=== PATIENT | female | born 1965 | race Caucasian/White ===

== ENCOUNTER 2018-12-17 03:23 | Emergency (ER) | payer OTHER, SELFPAY ==
--- NOTE | 2018-12-17 03:25 | W.ED.GENAD ---
Discharge Plan Disposition Patient Disposition: HOME Condition: Good Discharge Details Chief Complaint: Orthopedic Clinical Impression: Muscle cramp, nocturnal, Syncope, vasovagal Primary Care Provider: Amanda Cobos ED Provider: Nathanael Mckinney Home Meds and New Rx's Prescriptions: No Action No Known Home Meds RF: 0 Discharge Instructions Instructions: Leg Cramps (ED) Additional Instructions: Electrolytes are all normal. EKG looks fine. The fainting is likely related to vasovagal event. Follow-up with your primary care next week if continued problems. Return to ED if you develop chest pain, shortness of breath, neurologic changes, recurrent syncope, other concerns or problems. Referrals: Amanda Cobos, PROCESS IMPROVEMENT ENGINEER [Primary Care Provider] - Medical Decision Making Patient presenting because of leg cramping which resulted in what sounds to be a vasovagal event. She now has normal vital signs. She had no chest pain or shortness of breath. She currently has no pain or cramping in her legs. EKG was obtained and is sinus rhythm at a rate of 70. There is no acute changes noted. We will get laboratory studies mostly to evaluate electrolyte levels. CBC and BMP are normal. Potassium, calcium, magnesium are all within normal limits. Patient has had no further episodes here. She remains hemodynamically stable and neurologically intact. Her syncopal event definitely sounds vagal in nature. Do not have a good explanation for her lower extremity muscle cramping. I am not concerned for DVT. Patient is safe for discharge home to follow-up with primary care next week if continued problems. Return to ED if she develops chest pain, shortness of breath, recurrent syncope, neurologic changes, other concerns. ECG Data Attestation: I personally reviewed and interpreted this ECG (s) as follows: Prior ECG tracings: not available for review Interpretation: Normal sinus rhythm at a rate of 70. Normal axis and intervals. Normal EKG. HPI General Mode of arrival: ambulatory. Date/Time Provider Initiated Documentation: 12/17/18 03:24. Limitations to Documentation: no limitations. Information obtained by: patient and RN notes reviewed. HPI Narrative: Patient presents to ED because of leg cramping and fainting. 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 She was unable to get it to release with massage or stretching. She attempted to get up to go to the bathroom which caused the pain to intensify. She became lightheaded and weak and apparently passed out. Her son reports that she seemed very stiff but was not having jerking motions. When she came to she had cramps in her right thigh as well as her left groin. They have subsequently resolved during her trip into the ED. She did not experience any chest pain or shortness of breath. She had no headache or neurologic symptoms. She has no muscle cramping currently. She was concerned however that the cramps would come back when she was at home so she decided to stay and be evaluated. Related Data Home Medications Medication Instructions Recorded Confirmed Unknown [No Known Home Meds] 12/17/18 12/17/18 Allergies Allergy/AdvReac Type Severity Reaction Status Date / Time No Known Allergies Allergy Unverified 12/17/18 03:38 Review of Systems Review of Systems 12/07 Review of Systems completed and is negative except as stated above in HPI (Systems reviewed: Const, Resp, CV, GI, , MSK, Skin, Neuro) [facility] Surgical History Bilateral salpingectomy with oophorectomy section Cholecystectomy Social History Smoking/Tobacco Use Status: Current every day Tobacco Type: cigarettes Alcohol Intake: never Drug use: Never Substance use type: does not use Do you feel safe at home: Yes Do you feel safe in your relationship?: Yes Exam Narrative Exam Narrative: Vitals: Afebrile with normal vitals and pulse ox. Const: WDWN female in NAD. HEENT: NC/AT. Normal facial exam. Eyes: Normal conjunctiva and sclera. Neck: Supple. Trachea midline. Lungs: Normal respiratory effort. Lungs are clear. Cor: RRR without murmur/gallop. Good radial pulses. GI: Soft. NT/ND. No guarding or rebound. Neuro: A+O x 3. CN grossly in tact. Normal strength, sensation, speech, gait and cognition. Ext: No C/C/E. No deformity or tenderness. No calf tenderness. Skin: Warm and dry without rash.
[2018-12-17 03:28] VITALS: BP 123/87; PULSE 81; RESP 17; TEMP 36.8; O2SAT 98
[2018-12-17 04:17] LABS: HCT 39.8 % (36.0-46.0); HGB 13.4 g/dL (12.0-15.5); Mean Corp. HGB Concentration 33.7 g/dL (32.0-36.0); Mean Corpuscular Hemoglobin 30.9 pg (27.0-33.0); Mean Corpuscular Volume 91.7 fL (80-95); Mean Platelet Volume 9.5 fL (8.0-11.0); Platelet Count 248 x1000/uL (130-400); RBC 4.34 m/cumm (4.00-5.20); RBC Distribution Width 12.5 % (11.7-14.6); White Blood Cell Count 10.11 k/cumm (4.4-10.8)
[2018-12-17 04:28] LABS: Anion Gap 7.3 mmol/L (3-11); BUN 11 mg/dL (7-18); CO2 29.7 mmol/L (21.0-32.0); CREATININE 0.68 mg/dL (0.55-1.02); Calcium 8.9 mg/dL (8.5-10.1); Chloride 103 mmol/L (98-107); Glucose 112 mg/dL (70-100); Potassium 3.7 mmol/L (3.5-5.1); Sodium 140 mmol/L (136-145)
== END 2018-12-17 04:51 | disposition home or self-care (01) ==
PROVIDERS: Emergency Provider Emergency Medicine
DX: R25.2 Cramp and spasm (principal); R55 Syncope and collapse
CPT/HCPCS: 36415; 80048; 85027; 93005; 99284; 83735; 93010

== ENCOUNTER 2020-06-06 16:28 | Outpatient (REF) | payer OTHER, SELFPAY ==
--- NOTE | 2020-06-06 13:30 | PAPFT_PTH ---
PATIENT: Delma Hampton LOC: [facility] U#:[id number] AGE/SX: 55/F ROOM: RE06/06/[address]: Amanda Cobos APRN : 1965 BED: DIS: 06/06/2020 SPEC #: [id number] RECD: 06/07/20 12:53 STATUS: NAVARRO REQ #: [id number] SARAH: 06/06/20 13:[address]: Amanda Cobos DEPT: [facility] Cytology RECD BY: Jenny Curiel Tissues: 1 - CX/ENDOCX FOR PAP SMEARS Procedures: PAP THIN PREP/UVM Screening HPV DNA PROBE Comments: [id number] (HPV 16 / 18/45)
== END 2020-06-06 16:29 | disposition home or self-care (01) ==
LOC: LBN 16:28
DX: Z12.4 Encounter for screening for malignant neoplasm of cervix (principal); Z87.42 Personal history of other diseases of the female genital tract; Z11.51 Encounter for screening for human papillomavirus (HPV); R87.810 Cervical high risk human papillomavirus (HPV) DNA test positive
CPT/HCPCS: 88142; 87624

== ENCOUNTER 2020-06-10 21:52 | Outpatient (CLI) | payer OTHER, SELFPAY ==
--- NOTE | 2020-06-10 07:00 | DI.MAMMO_ITS ---
EXAM: MG MAMMO SCREENING CLINICAL HISTORY: screening,Z12.39. TECHNIQUE: Bilateral full field digital CC and MLO mammographic images were obtained with 3D tomosyn thesis and utilizing computer aided detection (CAD). COMPARISON: Prior mammograms dating back to 2011, the most recent being May 2017. FINDINGS: The right breast on 3D imaging there is a noncalcified 4 x 3 millimeter nodular density located 7 cm in from the nipple, not associated with microcalcifications. Most probably benign as appears unchang ed from 2012. In the left breast there is a noncalcified 6 by 3 millimeter nodular density located 6 cm in from the nipple, slightly lateral of center. More evident than previous. No associated microcalcifications. There is no significant architectural distortion nor skin thickening-retraction. IMPRESSION: 6 x 3 millimeter nodular density in the left breast spot compression view and ultrasound recommended. Stable small nodule in the opposite-right breast which is unchanged from 2012 and therefore benign. BI-RADS Category 0 - Assessment Incomplete: Need additional imaging evaluation Breast Density - Category C - Heterogeneously dense Breast density Category C or D implies that the patient has dense breast tissue. Dense breast tissue can make it harder to find cancer on a mammogram. Dense breast tissue is also associated with an incr eased risk of breast cancer. This information about the result of the mammogram report was provided to the patient to raise their awareness. Use this report when you speak with the patient about their risks for breast cancer, which includes their family history. At that time, you may recommend additional screening tests (Ultrasoun d or MRI) as these tests may add significant information. A negative radiographic report should not delay biopsy if a dominant or clinically suspicious mass is present. Up to ten percent of cancers are not identified on mammography. A negative report may reinforce clinical impression. Adenosis and dense breasts may obscure an underlying neoplasm. False positive reports average 6 to 10%. Patient will receive a letter notifying them of these results.
== END 2020-06-10 21:53 ==
LOC: DI 21:53
DX: Z12.31 Encounter for screening mammogram for malignant neoplasm of breast (principal); N63.10 Unspecified lump in the right breast, unspecified quadrant; R92.8 Other abnormal and inconclusive findings on diagnostic imaging of breast
CPT/HCPCS: 77063; 77067

== ENCOUNTER 2020-06-11 08:49 | Outpatient (CLI) | payer OTHER, SELFPAY ==
--- NOTE | 2020-06-11 | DI.US_ITS ---
EXAM: MG MAMMO SCREEN CALL BACK UNI CLINICAL HISTORY: F/U MAMMO, LT BREAST NODULAR DENSITY TECHNIQUE: Mammograms were interpreted according to the usual protocol including computer analysis w [employer] CAD system, tomosynthesis and C-view imaging. COMPARISON: FINDINGS: Additional mammographic views of the left breast and left breast ultrasound are interpreted in conjun ction. These examinations were obtained to evaluate area of nodularity seen in the central inferior portion of left breast on mammogram of June 10, this appeared to be located slightly lateral to midline on the basis of the tomographic image sets. Additional mammographic views show a questionable area of nodularity, this cannot be identified on CC views but is again seen on MLO views. Comparison with multiple prior mammograms including 2018 in 2 017 shows no significant interval change in appearance comparison with the prior studies. Breast ult rasound shows no evidence of a mass or cyst. IMPRESSION: No specific evidence of malignancy at this time. Follow-up unilateral left breast mammogram recommen ded in 6 months to assess stability of questionable small left breast nodule. BI-RADS Category 3 - 6 month - Probably Benign Finding: Recommend follow-up mammography in 6 months Breast Density - Category C - Heterogeneously dense
== END 2020-06-11 08:50 ==
LOC: DI 06-14 08:49
DX: R92.8 Other abnormal and inconclusive findings on diagnostic imaging of breast (principal)
CPT/HCPCS: 76642; 77063; 77067

== ENCOUNTER 2020-06-13 02:49 | Outpatient (CLI) | payer OTHER, SELFPAY ==
[2020-06-13 07:40] LABS: Hemoglobin A1C 5.6 % (<5.7)
[2020-06-13 08:56] LABS: ALT 24 U/L (14-59); AST 13 U/L (15-37); Albumin 3.9 g/dL (3.4-5.0); Alkaline Phosphatase 111 U/L (46-116); Anion Gap 7.8 mmol/L (3-11); BUN 14 mg/dL (7-18); Bilirubin, Total 0.3 mg/dL (0.2-1.0); CO2 29.2 mmol/L (21.0-32.0); CREATININE 0.8 mg/dL (0.55-1.02); Calcium 9.2 mg/dL (8.5-10.1); Calculated LDL 166 mg/dL (<100); Chloride 105 mmol/L (98-107); Cholesterol 237 mg/dL (<200); Glucose 102 mg/dL (74-106); HDL Cholesterol 48 mg/dL (40-60); Potassium 4.3 mmol/L (3.5-5.1); Sodium 142 mmol/L (136-145); Total Protein 7.3 g/dL (6.4-8.2); Triglyceride 115 mg/dL (<150)
== END 2020-06-13 02:50 | disposition home or self-care (01) ==
LOC: LBO 02:49
DX: Z00.00 Encounter for general adult medical examination without abnormal findings (principal); R73.09 Other abnormal glucose; Z13.220 Encounter for screening for lipoid disorders
CPT/HCPCS: 36415; 80053; 80061; 83036

== ENCOUNTER 2021-02-04 01:17 | Outpatient (CLI) | payer OTHER, SELFPAY ==
--- NOTE | 2021-02-04 07:00 | DI.MAMMO_ITS ---
Exam(s) MAMMO DIAGNOSTIC UNI EXAM: MAMMO DIAGNOSTIC UNI-LEFT CLINICAL HISTORY: f/u abnormal mammogram left breast 06/10/20,6 month f/u,r92.8. TECHNIQUE: Unilateral spot mammographic images were obtained with 3D tomosynthesis technique and uti lizing computer aided detection (CAD). COMPARISON: Prior mammograms dating back to 2011, the most recent being May 2020. Ultrasound F ebruary 2020 was also reviewed. FINDINGS: Fibroglandular tissue pattern in left breast is unchanged. There are no CAD designations in left breast. No new nodules nor malignant-appearing microcalcification groups. Indeed, the previously described p ossible nodule in left breast is less evident on today's study, further evidence that it was a benign finding. Repeat ultrasound is not required today. No malignant-appearing microcalcification groups in the left breast. No new architectural distortion or skin thickening-traction. IMPRESSION: No radiographic evidence of malignancy in the left breast Appropriate follow-up is to keep this patient yearly mammogram schedule, with earlier imaging if a se lf detected breast change is noted. The patient was informed of the findings and follow-up recommendations prior to leaving the [facility]. BI-RADS Category 2 - Benign Findings Breast Density - Category C - Heterogeneously dense Breast density Category C or D implies that the patient has dense breast tissue. Dense breast tissue can make it harder to find cancer on a mammogram. Dense breast tissue is also associated with an incr eased risk of breast cancer. This information about the result of the mammogram report was provided to the patient to raise their awareness. Use this report when you speak with the patient about their risks for breast cancer, which includes their family history. At that time, you may recommend additional screening tests (Ultrasoun d or MRI) as these tests may add significant information. A negative radiographic report should not delay biopsy if a dominant or clinically suspicious mass is present. Up to ten percent of cancers are not identified on mammography. A negative report may reinforce clinical impression. Adenosis and dense breasts may obscure an underlying neoplasm. False positive reports average 6 to 10%. Patient will receive a letter notifying them of these results.
== END 2021-02-04 01:37 ==
DX: R92.8 Other abnormal and inconclusive findings on diagnostic imaging of breast (principal)
CPT/HCPCS: 77061; 77065; G0279

== ENCOUNTER 2021-03-17 09:01 | Outpatient (CLI) | payer OTHER, SELFPAY ==
[2021-03-17 22:30] LABS: COVID-19 RT-PCR UVMMC Result Negative (Negative)
== END 2021-03-17 09:02 | disposition home or self-care (01) ==
LOC: LBO 09:10
PROVIDERS: Visit Provider Family Medicine
DX: Z20.822 Contact with and (suspected) exposure to COVID-19 (principal)
CPT/HCPCS: U0003

== ENCOUNTER 2021-10-23 12:31 | Outpatient (REF) | payer OTHER, SELFPAY ==
--- NOTE | 2021-10-24 11:15 | PAPFT_PTH ---
PATIENT: Delma Hampton LOC: [facility] U#:[id number] AGE/SX: 56/F ROOM: RE10/23/[address]: Amanda Cobos APRN : 1965 BED: DIS: 10/23/2021 SPEC #: [id number] RECD: 10/24/21 12:04 STATUS: NAVARRO BARBOZA #: [id number] SARAH: 10/24/21 11:[address]: Amanda Cobos DEPT: [facility] Cytology RECD BY: Norma Lovelace Tissues: 1 - CX/ENDOCX FOR PAP SMEARS Procedures: PAP THIN PREP/UVM Screening HPV DNA PROBE Comments: [id number] (HPV 16 & 18/45)
== END 2021-10-23 12:32 | disposition home or self-care (01) ==
LOC: LBN 12:31
DX: Z12.4 Encounter for screening for malignant neoplasm of cervix (principal); Z11.51 Encounter for screening for human papillomavirus (HPV); R87.810 Cervical high risk human papillomavirus (HPV) DNA test positive
CPT/HCPCS: 88142; 87624

== ENCOUNTER 2021-10-30 04:06 | Outpatient (CLI) | payer OTHER, SELFPAY ==
[2021-10-30 10:32] LABS: ALT 18 U/L (14-59); AST 11 U/L (15-37); Albumin 3.9 g/dL (3.4-5.0); Alkaline Phosphatase 108 U/L (46-116); Anion Gap 9.3 mmol/L (3-11); BUN 16 mg/dL (7-18); Bilirubin, Total 0.3 mg/dL (0.2-1.0); CO2 25.7 mmol/L (21.0-32.0); CREATININE 0.8 mg/dL (0.55-1.02); Calcium 9.2 mg/dL (8.5-10.1); Chloride 103 mmol/L (98-107); Glucose 101 mg/dL (74-106); Sodium 138 mmol/L (136-145); Total Protein 7.5 g/dL (6.4-8.2)
[2021-10-30 10:49] LABS: Calculated LDL 146 mg/dL (<100); Cholesterol 214 mg/dL (<200); HDL Cholesterol 50 mg/dL (40-60); Triglyceride 93 mg/dL (<150)
== END 2021-10-30 04:07 | disposition home or self-care (01) ==
LOC: LBO 04:06
DX: Z00.00 Encounter for general adult medical examination without abnormal findings (principal); E78.5 Hyperlipidemia, unspecified
CPT/HCPCS: 36415; 80053; 80061

== ENCOUNTER → 2021-11-24 01:28 | Outpatient (CLI) | payer OTHER, SELFPAY ==
--- NOTE | 2021-11-24 07:45 | DI.MAMMO_ITS ---
Exam(s) MAMMO SCREENING EXAM: MAMMO SCREENING CLINICAL HISTORY: screening.Z12.39 TECHNIQUE: Mammograms were interpreted according to the usual protocol including computer analysis w [facility] CAD system, tomosynthesis and C-view imaging. COMPARISON: FINDINGS: The breasts are heterogeneously dense. No dominant mass or clumped microcalcification is identified in either breast. The current examination is compared with previous examinations including of 2020 and there has been no gross interval change in appearance in comparison with the prior studie s. IMPRESSION: No specific evidence of malignancy at this time. Routine screening examinations are suggested at yea rly intervals in this age group according to the ACS ACR guidelines. BI-RADS Category 1 - Negative Breast Density - Category C - Heterogeneously dense
== END ==
DX: Z12.31 Encounter for screening mammogram for malignant neoplasm of breast (principal)
CPT/HCPCS: 77063; 77067

== ENCOUNTER 2022-08-07 13:00 | Outpatient (CLI) | payer OTHER, SELFPAY ==
--- NOTE | 2022-08-07 | DI.RAD_ITS ---
Exam(s) XR FOOT RT COMPLETE EXAM: XR FOOT RT COMPLETE CLINICAL HISTORY: RT FOOT PAIN M79.671 INJURY 3 WEEKS AGO ? FX. TECHNIQUE: 2D digital imaging was performed. Three views. COMPARISON: No exams were available for comparison FINDINGS: BONES: No acute or subacute fracture is present. No bony destructive lesion is seen. JOINTS: No dislocation present. SOFT TISSUE: Normal. IMPRESSION: Unremarkable radiographs of the right foot. DATA REPOSITORY: RADIATION DOSE DELIVERED:
== END 2022-08-07 13:20 ==
LOC: DI 13:01
PROVIDERS: PCP Nurse Practitioner Family; Visit Provider Physician Assistant Medical
DX: M79.671 Pain in right foot (principal)
CPT/HCPCS: 73630

== ENCOUNTER 2022-10-10 11:45 | Outpatient (REF) | payer OTHER, SELFPAY ==
--- NOTE | 2022-10-10 | DI.RAD_ITS ---
Exam(s) XR CHEST 2V PA LATERAL EXAM: XR CHEST 2V PA LATERAL CLINICAL HISTORY: SOB. TECHNIQUE: 2D digital imaging was performed. COMPARISON: No exams were available for comparison FINDINGS: 2 views: Heart size is normal. The mediastinum is not widened. Lungs are clear. No infiltrates nor pleural effusions. IMPRESSION: No acute pulmonary findings. DATA REPOSITORY: RADIATION DOSE DELIVERED:
--- NOTE | 2022-10-10 13:13 | DI.VRAD_ITS ---
PROCEDURE INFORMATION: Exam: XR Chest Exam date and time: 10/10/2022 12:18 PM Age: 57 years old Clinical indication: Shortness of breath TECHNIQUE: Imaging protocol: Radiologic exam of the chest. Views: 2 views. COMPARISON: No relevant prior studies available. FINDINGS: Lungs: Unremarkable. No consolidation. Pleural spaces: Unremarkable. No pleural effusion. No pneumothorax. Heart/Mediastinum: Unremarkable. No cardiomegaly. Bones/joints: Degenerative changes are seen in the spine. There is no acute bony abnormality Surgical clips are seen in the right upper quadrant likely prior cholecystectomy IMPRESSION: No acute findings by plain film exam Dictated and Authenticated by: Hollie Waldrop MD. Ordering:RONNIE REYNOLDS MD
== END 2022-10-10 12:05 ==
LOC: DI 11:45
PROVIDERS: PCP Nurse Practitioner Family; Visit Provider Nurse Practitioner Family
DX: R06.02 Shortness of breath (principal)
CPT/HCPCS: 71046

== ENCOUNTER 2022-10-10 12:22 | Outpatient (REF) | payer OTHER, SELFPAY ==
[2022-10-12 11:03] LABS: Hepatitis C Ab w Rflx HCV PCR Negative (Negative)
[2022-10-12 11:33] LABS: HIV-1/2 Ag & Ab Screen Negative (Negative)
== END 2022-10-10 12:23 | disposition home or self-care (01) ==
LOC: LBN 12:22
PROVIDERS: PCP Nurse Practitioner Family; Visit Provider Nurse Practitioner Family
DX: Z11.3 Encounter for screening for infections with a predominantly sexual mode of transmission (principal); Z11.4 Encounter for screening for human immunodeficiency virus [HIV]; Z11.59 Encounter for screening for other viral diseases
CPT/HCPCS: 86803; 87389

== ENCOUNTER 2022-10-30 11:29 | Outpatient (REF) | payer OTHER, SELFPAY ==
--- NOTE | 2022-10-30 10:30 | PAPFT_PTH ---
PATIENT: Delma Hampton LOC: [facility] U#:[id number] AGE/SX: 57/F ROOM: RE10/30/[address]: Greg Goyal DNP : 1965 BED: DIS: 10/30/2022 SPEC #: [id number] RECD: 10/30/22 13:27 STATUS: NAVARRO RE[place]er[place] #: [id number] SARAH: 10/30/22 10:[address]: Greg Encarnacion DEPT: [facility] Cytology RECD BY: Greta Garcia Tissues: 1 - CX/ENDOCX FOR PAP SMEARS Procedures: PAP THIN PREP/UVM Screening HPV DNA PROBE Comments: [id number] (HPV 16 & 18/45) (CHLAMYDIA/GC)
[2022-11-02 13:24] LABS: Chlamydia Result Negative (Negative); GC Result Negative (Negative)
== END 2022-10-30 11:30 | disposition home or self-care (01) ==
LOC: LBN 11:29
PROVIDERS: PCP Nurse Practitioner Family; Visit Provider Nurse Practitioner Family
DX: Z11.3 Encounter for screening for infections with a predominantly sexual mode of transmission (principal); Z12.4 Encounter for screening for malignant neoplasm of cervix; Z11.51 Encounter for screening for human papillomavirus (HPV); R87.810 Cervical high risk human papillomavirus (HPV) DNA test positive
CPT/HCPCS: 87491; 87591; 88142; 87624

== ENCOUNTER 2022-11-26 11:58 | Day surgery (SDC) | payer OTHER, SELFPAY ==
--- NOTE | 2022-11-25 19:41 | W.PM.DSUDISC ---
Date of service: 11/26/22 Time of Service: 13:25 Discharge Plan Disposition Patient Disposition: Home Condition: Good Discharge Details Reason For Visit: EGD Attending Provider: Rogelio Jurado Primary Care Provider: Greg Encarnacion Home Meds and New Rx's Prescriptions: Continued calcium carbonate [Tums] 200 mg calcium (500 mg) Tablet,Chewable 500 mg PO DIRECTED Discharge Instructions Instructions: Diet for Stomach Ulcers and Gastritis (GEN) Additional Instructions: Delma, we were able to do your upper endoscopy today without any problems at all. You do have a very mild amount of inflammation in your stomach. This is called gastritis. There are a number of different causes of gastritis, but some general rules of thumb to help improve the symptoms would be to avoid nonsteroidal anti-inflammatory medications such as aspirin and ibuprofen. Decreasing, or even better yet, stopping cigarette smoking is also known to be very helpful. I know that you did not tolerate the omeprazole very well, and there were a number of other types of medications that we can try to help relieve some of your symptoms. At this point, however, I would prefer to wait for the results of the biopsies that I did today before making any changes to your medicines. Most importantly, I did not see any signs of any hiatal hernia. In that regard, I think it would be very reasonable to get you on the schedule to repair the hernia on your abdominal wall. I will leave the timing of this up to you. Like we talked about in the office, and after your procedure, recovery from the abdominal wall hernia repair will be about a week to week and a half of soreness, and light duty lifting (nothing more than 10 pounds). I am optimistic that will help relieve some of the pain that you have been experiencing. Please feel free to give my office a call at any time. I will let them know that it will be fine to put you on the operating room schedule whenever works for you. If we need to repeat any paperwork, we can do it on the day of surgery. In the meantime, follow the instructions below, and I am sure you will make a quick recovery from the EGD. 1. If tolerated, consume a soft, low fiber diet for 1-2 days. 2. Do not drive, drink alcohol, operate machinery, make critical decisions, or do activities that require coordination or balance for 24 hours. 3. You may experience a sore throat for 24 to 48 hours. You may use throat lozenges or gargle with warm salt water to relieve the discomfort. 4. Because air was put into your stomach during the procedure, you may experience some belching. 5. Go directly to the emergency room if you notice any of the following: Develop chills (warm to touch), or if you have a thermometer and your temperature is above 101 Difficulty breathing or difficultly swallowing Persistent vomiting Severe abdominal pain, other than gas cramps Severe chest pain Black, tarry stools Any bleeding ? exceeding one tablespoon 6. Call your physician if the site where your intravenous was started becomes red, swollen, painful, and warm to touch. 7. Your physician has reviewed your pre-procedure medications. Please continue to take those medications as previously ordered. You will be given specific information/education regarding any changes to your medications before leaving. Activity:: Activity as Tolerated Diet:: As Tolerated Discharge Orders Discharge Orders: Discharge Order (Routine); Ordered 11/25/22 Ordered By: Rogelio Jurado DS: Diagnosis Discharge Diagnosis (1) Gastritis: Status: Acute Asessment and Plan: I will follow-up on biopsy results
--- NOTE | 2022-11-25 19:43 | W.PM.ENDDOP ---
Date of service: 11/26/22 Time of Service: 13:28 Endoscopy Report DATE OF PROCEDURE: 11/26/22 PRE-OP DIAGNOSIS: Gastritis POST-OP DIAGNOSIS: same PROCEDURE: EGD with biopsies SURGEON: Rogelio Jurado ANESTHESIA TYPE: General:No Airway ESTIMATED BLOOD LOSS: 5 PATHOLOGY: other (Duodenal, gastric antral and body, GE junction biopsy) COMPLICATIONS: None DISPOSITION: same day INDICATIONS: Delma is a 57 year old woman with midepigastric abdominal pain. PROCEDURE START TIME: 13:06 PROCEDURE END TIME: 13:13 FINDINGS: Mild antral gastritis, irregularity at the GE junction PROCEDURE DESCRIPTION: After the initiation of monitored anesthetic care, and with the assistance of a bite block, I advanced a standard gastroscope through the mouth past the hypopharynx and into the esophagus.? Under the direct vision of the scope, I advanced down the esophagus into the stomach.? Once I entered the stomach, I performed a brief inspection, followed by retroflexion towards the gastric cardia.? This appeared normal.? I did not see any signs of hiatal hernia from above or below the GE junction. After that, I gently advanced the scope around the incisura angularis and examined the pylorus.? There was some mild erythema of the antral region. There were no discrete ulcers..? Next, I advanced the scope through the pylorus into the duodenum.? The mucosa was pink and healthy appearing.?I was able to visualize bile draining into the duodenum through the ampulla Vater. I did perform some random biopsies of the duodenum using cold forceps. There was minimal bleeding. Next, I began retracting the endoscope.? I brought the camera back into the stomach and performed biopsies of the gastric antrum as well as the gastric body. This was also done with cold forceps.? I then gently desufflated some of the stomach, and withdrew the endoscope into the distal esophagus. The GE junction measured about 30 cm from the incisors. There was very mild irregularity of the Z-line. I did perform biopsies of the GE junction.. ?Finally, I withdrew the scope along the length of the esophagus taking great care to examine the entirety of the mucosa.? I did not appreciate any abnormalities.
[2022-11-26 12:10] VITALS: BP 127/86; PULSE 90; RESP 18; TEMP 37; O2SAT 96
[2022-11-26] MEDS: Lactated Ringers 1,000 ML 80 ML IV (12:29)
--- NOTE | 2022-11-26 12:58 | ANES.PREOP_ITS ---
General Info Date of Service Date Performed: 11/26/22 Height: 4 ft 11 in Weight: 45.1 kg Body Mass Index (BMI): 20.0 Surgical Procedure: Operation Date: 11/26/22 13:35 Proposed Procedure Side Surgeon p Gastroscopy Rogelio Jurado MD Meds Allergies and Home Medications Allergies Allergy/AdvReac Type Severity Reaction Status Date / Time No Known Allergies Allergy Verified 11/26/22 12:16 Home Medication Medication Instructions Recorded calcium carbonate 200 mg calcium 500 mg PO DIRECTED 11/25/22 (500 mg) chewable tablet (Tums) Current Visit Medications: Current Medications Generic Name Dose Route Start Last Admin Trade Name Freq PRN Reason Stop Dose Admin Hyoscyamine Sulfate 0.125 mg 11/25/22 19:45 Hyoscyamine 0.125 Mg Sl/Oral/Chew SL 12/25/22 19:44 DIRECTED PRN Ringer's Solution 1,000 mls @ 80 mls/hr 11/27/22 06:00 11/26/22 12:29 IV 11/27/22 23:59 80 mls/hr INFUSION ELENA Administration IV Miscellaneous Supplies 1 each 11/27/22 06:00 Iv Access IV 11/27/22 23:59 DIRECTED ELENA Ondansetron HCl 4 mg 11/25/22 19:45 Ondansetron 4 Mg/2 Ml Vial IVP 12/25/22 19:44 Q4H PRN PRN Nausea / Vomiting Sodium Chloride 0 ml 11/27/22 06:00 Normal Saline Flush 10 Ml Syr IV 11/27/22 23:59 PRN PRN Sodium Chloride 0 ml 11/27/22 06:00 Normal Saline 10 Ml Vial IJ 11/27/22 23:59 DIRECTED PRN Sterile Water 0 ml 11/27/22 06:00 Water,Injection,Sterile 10 Ml Vial IJ 11/27/22 23:59 DIRECTED PRN PFSH Active Problems Active Problems: Problem Status Onset Code Gastritis K29.70 Hyperlipidemia LDL goal <100 E78.5 Abnormal mammogram of left breast R92.8 Anxiety and depression F41.9, F32.9 Pain in left hip M25.552 Encounter for screening for other viral diseases Z11.59 History of abnormal cervical Pap smear 03/25/04 Z87.898 Abnormal weight loss R63.4 Carpal tunnel syndrome G56.00 Depressive disorder F32.9 Bitten by dog, subsequent encounter 05/03/17 W54.0XXD H/O section Z98.891 Headache R51 Hx of BSO (bilateral salpingo-oophorectomy) Z90.79, Z90.722 S/P cholecystectomy Z90.49 Smoker F17.200 Synovitis and tenosynovitis 10/18/12 M65.9 Surgical History Surgical History Bilateral salpingectomy with oophorectomy section Cholecystectomy Tobacco Smoking/Tobacco Use Status: Current every day Tobacco Type: cigarettes Second hand exposure: Yes Counseling given: provider counseling Alcohol Alcohol Intake: current Alcohol intake frequency: a few times a week Alcohol type: beer Details: 3-4 drinks, monthly or less Substance Use Substance use: Never Substance use type: does not use Vital Signs and Lab Results Vital Signs Most Recent Vital Signs in EMR: Most Recent Vital Signs Temp Pulse Resp BP Pulse Ox 37.0 C 90 18 127/86 96 11/26/22 12:10 11/26/22 12:10 11/26/22 12:10 11/26/22 12:10 11/26/22 12:10 Lab Results Blood Type / Crossmatch: No Data to Display Complete Blood Count: No Data to Display Complete Metabolic Panel: No Data to Display Liver Function Panel: No Data to Display Coagulation Panel: No Data to Display Cardiac Panel: No Data to Display Arterial Blood Gas: No Data to Display Venous Blood Gas: No Data to Display Pancreas Panel: No Data to Display Thyroid Panel: No Data to Display Infectious Disease: Neisseria gonorrhoeae DNA Probe Negative (Negative) 10/30/22 1 0:30 Blood Cultures: No Data to Display Toxicology Panel: No Data to Display Anesthesia Assessment and Plan Anesthesia History Personal History: No History of Anesthesia Complications Family History: No Family History of Anesthesia Complications Exercise Tolerance Exercise Tolerance: Metabolic Equivalents>4 Pertinent Negatives Pertinent Negatives: No Symptoms of GERD, No Major Cardiovascular Symptoms or Complaints and No History of CVA/TIA Cardiac & Pulmonary Exam Cardiac Exam: Normal S1/S2 Heart Sounds Pulmonary Exam: Clear Bilateral Breath Sounds and Active Dry Cough Implantable Cardiac Device Does patient have a Pacemaker or an ICD?: No Airway Exam Known Difficult Airway: No Mallampati Class: 1 Mouth Opening: Normal (> 3cm) Thyromental Distance: Greater than 3 cm Neck Range of Motion: Full ROM Neck Circumference: Normal Teeth Condition: Normal Dentition ASA Classification ASA Score: ASA 2 Emergency Case?: No NPO Status NPO Status: NPO Clears >2 hours, Solids >8 hours Anesthesia Plan Resuscitation Status: Full Code Anesthesia Technique: Labor Intrathecal Injection Airway Planned: Natural Airway Monitors Used: Standard Monitors
--- NOTE | 2022-11-26 13:08 | BOWEL_PTH ---
PATIENT: Delma Hampton LOC: [facility] U#:[id number] AGE/SX: 57/F ROOM: RE11/26/[address]: Rogelio Jurado MD : 1965 BED: DIS: 11/26/2022 SPEC #: [id number] RECD: 11/26/22 15:29 STATUS: NAVARRO RE #: [id number] SARAH: 11/26/22 13:[address]: Rogelio Jurado DEPT: Surgical Specimen RECD BY: Norma Lovelace ENTERED: 11/26/22 15:31 SP TYPE: Bowel OTHR DR: Greg Goyal DNP Tissues: 1 - BIOPSY BOWEL 2 - STOMACH BIOPSY 3 - STOMACH BIOPSY 4 - ESOPHAGUS BIOPSY Procedures: GROSS AND MICRO LEVEL 4 Comments: [id number]
[2022-11-26 13:18] VITALS: BP 101/56; PULSE 82; RESP 16; TEMP 36.6; O2SAT 96
--- NOTE | 2022-11-26 13:23 | W.ANESPOSTOP ---
Postoperative Evaluation Date, Time and Location Date Performed: 11/26/22 Time Performed: 13:23 Patient Location: Day Surgery Unit Vital Signs Most Recent Imported Vital Signs: Temp Pulse Resp BP Pulse Ox 36.6 C 82 16 101/56 L 96 11/26/22 13:18 11/26/22 13:18 11/26/22 13:18 11/26/22 13:18 11/26/22 13:18 Most Recent Vital Signs Temp Pulse Resp BP Pulse Ox 37.0 C 90 18 127/86 96 11/26/22 12:10 11/26/22 12:10 11/26/22 12:10 11/26/22 12:10 11/26/22 12:10 Pain Score Most Recent Pain Score: Most Recent Pain Score Pain Level 0 11/26/22 12:10 Assessment Mental Status: Awake (Alert & Oriented to Patient Baseline) Airway and Respiratory Function: Patent airway with normal (patient baseline) respiratory exam Cardiovascular Function: Hemodynamically Stable Hydration Status: Adequately Hydrated Nausea & Vomiting: No Nausea or Vomiting Pain: Pt. Denies Any Pain Peripheral Nerve Block: Patient did not receive a nerve block
[2022-11-26 14:04] VITALS: BP 135/62; PULSE 70; RESP 18; TEMP 36.6; O2SAT 98
== END 2022-11-26 14:13 | disposition home or self-care (01) ==
PROVIDERS: PCP Nurse Practitioner Family; Visit Provider Surgery
PROC: 0DJ68ZZ Inspection of Stomach, Via Natural or Artificial Opening Endoscopic (ICD-10-PCS; CPT 43235; principal; 2022-11-26 13:30)
DX: K29.70 Gastritis, unspecified, without bleeding (principal); K22.89 Other specified disease of esophagus
CPT/HCPCS: 43239; 88305; J2001

== ENCOUNTER 2022-12-18 08:00 | Day surgery (SDC) | payer OTHER, SELFPAY ==
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
--- NOTE | 2022-12-17 20:39 | W.PM.DSUDISC ---
Date of service: 12/18/22 Time of Service: 10:42 Discharge Plan Disposition Patient Disposition: Home Condition: Good Discharge Details Reason For Visit: Open incisional hernia repair with mesh Attending Provider: Rogelio Jurado Primary Care Provider: Greg Encarnacion Home Meds and New Rx's Prescriptions: Continued calcium carbonate [Tums] 200 mg calcium (500 mg) Tablet,Chewable 500 mg PO DIRECTED Discharge Instructions Additional Instructions: Delma, we were able to fix your hernia today without any difficulty. The hole itself was about 1 and half centimeters in each dimension. It contained a little bit of fat from your abdominal cavity. Everything was returned to its normal position, and I used a permanent mesh implant below the level of the whole to buttress the closure which was done over top. We used a long-acting anesthetic that will hopefully provide some relief in the days to come. I will also provide a prescription for some tramadol in the case that Tylenol and ibuprofen are inadequate for your discomfort. I look forward to seeing you in the office on December 30 at 8:15 AM. If you have any questions in the meantime, please do not hesitate to call me at any point. 1. Resume all of your medications. 2. Ice packs and heating pads can be used for discomfort after the surgery. 3. Okay to use tylenol and ibuprofen over the counter as needed. Use the tramadol if this does not work 4. Leave bandage in place for 24 hours, then remove. 5. Shower with warm soapy water. Pat dry. Use a bandaid if needed to protect your clothing. 6. No soaking or tub baths until I see you in the office. 7. No heavy lifting until I see you in the office. 8. Call the office (or go directly to the emergency room after hours) if you notice any of the following: Develop chills (warm to touch), or if you have a thermometer and your temperature is above 101 Difficulty breathing or difficultly swallowing Persistent vomiting Any bleeding ? exceeding one tablespoon 9. Call your physician if the site where your intravenous was started becomes red, swollen, painful, and warm to touch. Remove Dressings/Wound Care:: 24 hours Shower/Bathe:: 24 hours Diet:: As Tolerated Discharge Orders Discharge Orders: Discharge Order (Routine); Ordered 12/17/22 Ordered By: Rogelio Jurado DS: Diagnosis Discharge Diagnosis (1) Incisional hernia: Status: Acute Asessment and Plan: Status post incisional hernia repair, follow-up December 30 a 8:15
--- NOTE | 2022-12-17 20:40 | W.PM.OP ---
Date of service: 12/18/22 Time of Service: 10:47 Operative Note Operative Note DATE OF PROCEDURE: 12/18/22 PRE-OP DIAGNOSIS: Incisional hernia POST-OP DIAGNOSIS: same PROCEDURE: Open incisional hernia repair with mesh SURGEON: Rogelio Jurado LOSS PREVENTION LEADER: Danni Olmos ANESTHESIA TYPE: Local By Surgeon and MAC Refer to Anesthesia Record ESTIMATED BLOOD LOSS: 20 PATHOLOGY: none sent COMPLICATIONS: None Patient was transported to: same day Patient's condition: stable Implants: Ventral Roldan ST hernia patch Indications: Delma is a 57-year-old woman with a painful incisional hernia from a mid epigastric port site after laparoscopic cholecystectomy. Findings: 1.5 x 1.5 centimeter midepigastric incisional port site fat-containing hernia Procedure Description: If the induction of anesthesia, the anterior abdominal wall was prepped and draped in usual fashion. I incised in the midline, and dissected down to the fascia. The dissection was carried off slightly towards the right side, where the incisional hernia was encountered. A complete circumferential dissection of the hernia sac, which was opened. It contained peritoneal fat. The contents of the sac were reduced back into the peritoneal space, and the fascial edge was dissected free. Next, I delivered a Ventralex ST hernia mesh into the subfascial position. The straps were split, and the patch was gently elevated to ensure appropriate subfascial positioning. It was pexied in place with Prolene sutures. Next, the fascial defect was closed in a horizontal fashion with interrupted Prolene stitches. The space was irrigated. It was examined for hemostasis. The deep fat layer was closed with interrupted Vicryl stitches, and the skin was closed with a running subcuticular stitch. A generous field block was created prior to the incision, and reinforced at the end of the operation using liposomal bupivacaine. Skin affix was used to seal the skin. Final incision length was 5 cm long.
[2022-12-18 08:16] VITALS: BP 152/83; PULSE 67; RESP 17; TEMP 36.7; O2SAT 96
[2022-12-18] MEDS: Celecoxib 200 MG CAP PO (08:22)
[2022-12-18] MEDS: Acetaminophen 500 MG TAB 1000 MG PO (08:23)
[2022-12-18] MEDS: Gabapentin 300 MG CAP 600 MG PO (08:23)
[2022-12-18] MEDS: Lactated Ringers 1,000 ML 80 ML IV (08:30)
--- NOTE | 2022-12-18 09:14 | W.ANESPRE ---
General Info Date of Service Date Performed: 12/18/22 Height: 4 ft 11 in Weight: 44.7 kg Body Mass Index (BMI): 19.9 Surgical Procedure: Operation Date: 12/18/22 10:10 Proposed Procedure Side Surgeon p Herniorrhaphy Ventral w/Mesh Rogelio Jurado MD Meds Allergies and Home Medications Allergies Allergy/AdvReac Type Severity Reaction Status Date / Time No Known Allergies Allergy Verified 12/18/22 08:21 Home Medication Medication Instructions Recorded calcium carbonate 200 mg calcium 500 mg PO DIRECTED 11/25/22 (500 mg) chewable tablet (Tums) Current Visit Medications: Current Medications Generic Name Dose Route Start Last Admin Trade Name Freq PRN Reason Stop Dose Admin Acetaminophen 1,000 mg 12/18/22 06:00 12/18/22 08:23 Acetaminophen 500 Mg Tab PO 12/18/22 23:59 1,000 mg PREOP ELENA Administration Celecoxib 200 mg 12/18/22 06:00 12/18/22 08:22 Celecoxib 200 Mg Cap PO 12/18/22 23:59 200 mg PREOP ELENA Administration Gabapentin 600 mg 12/18/22 06:00 12/18/22 08:23 Gabapentin 300 Mg Cap PO 12/18/22 23:59 600 mg PREOP ELENA Administration Hydromorphone HCl 0.2 mg 12/17/22 20:41 Hydromorphone 2 Mg/Ml Syr IVP 01/16/23 20:40 Q1H PRN PRN Ringer's Solution 1,000 mls @ 80 mls/hr 12/18/22 06:00 12/18/22 08:30 IV 12/18/22 23:59 80 mls/hr INFUSION ELENA Administration Cefazolin Sodium/Dextrose 2 gm in 50 mls @ 100 mls/hr 12/18/22 06:00 Ancef Duplex IVPB 12/18/22 23:59 PREOP ELENA IV Miscellaneous Supplies 1 each 12/18/22 06:00 Iv Access IV 12/18/22 23:59 DIRECTED ELENA Oxycodone HCl 5 mg 12/17/22 20:41 Oxycodone 5 Mg Tab PO 01/16/23 20:40 Q3H PRN PRN Pain Sodium Chloride 0 ml 12/18/22 06:00 Normal Saline Flush 10 Ml Syr IV 12/18/22 23:59 PRN PRN Sodium Chloride 0 ml 12/18/22 06:00 Normal Saline 10 Ml Vial IJ 12/18/22 23:59 DIRECTED PRN Sterile Water 0 ml 12/18/22 06:00 Water,Injection,Sterile 10 Ml Vial IJ 12/18/22 23:59 DIRECTED PRN PFSH Active Problems Active Problems: Problem Status Onset Code Incisional hernia K43.2 Gastritis K29.70 Hyperlipidemia LDL goal <100 E78.5 Abnormal mammogram of left breast R92.8 Anxiety and depression F41.9, F32.9 Pain in left hip M25.552 Encounter for screening for other viral diseases Z11.59 History of abnormal cervical Pap smear 03/25/04 Z87.898 Abnormal weight loss R63.4 Carpal tunnel syndrome G56.00 Depressive disorder F32.9 Bitten by dog, subsequent encounter 05/03/17 W54.0XXD H/O section Z98.891 Headache R51 Hx of BSO (bilateral salpingo-oophorectomy) Z90.79, Z90.722 S/P cholecystectomy Z90.49 Smoker F17.200 Synovitis and tenosynovitis 10/18/12 M65.9 Surgical History Surgical History Bilateral salpingectomy with oophorectomy section Cholecystectomy History of esophagogastroduodenoscopy (~11/2022) Tobacco Smoking/Tobacco Use Status: Current every day Tobacco Type: cigarettes Second hand exposure: Yes Counseling given: provider counseling Alcohol Alcohol Intake: current Alcohol intake frequency: a few times a week Alcohol type: beer Details: 3-4 drinks, monthly or less Substance Use Substance use: Never Substance use type: does not use Vital Signs and Lab Results Vital Signs Most Recent Vital Signs in EMR: Most Recent Vital Signs Temp Pulse Resp BP Pulse Ox 36.7 C 67 17 152/83 H 96 12/18/22 08:16 12/18/22 08:16 12/18/22 08:16 12/18/22 08:16 12/18/22 08:16 Lab Results Blood Type / Crossmatch: No Data to Display Complete Blood Count: No Data to Display Complete Metabolic Panel: No Data to Display Liver Function Panel: No Data to Display Coagulation Panel: No Data to Display Cardiac Panel: No Data to Display Arterial Blood Gas: No Data to Display Venous Blood Gas: No Data to Display Pancreas Panel: No Data to Display Thyroid Panel: No Data to Display Infectious Disease: No Data to Display Blood Cultures: No Data to Display Toxicology Panel: No Data to Display Anesthesia Assessment and Plan Anesthesia History Personal History: No History of Anesthesia Complications Family History: No Family History of Anesthesia Complications Exercise Tolerance Exercise Tolerance: Metabolic Equivalents>4 Pertinent Negatives Pertinent Negatives: No Major Cardiovascular Symptoms or Complaints, No Major Pulmonary Symptoms or Complaints and No History of CVA/TIA Cardiac & Pulmonary Exam Cardiac Exam: Normal S1/S2 Heart Sounds Pulmonary Exam: Clear Bilateral Breath Sounds Implantable Cardiac Device Does patient have a Pacemaker or an ICD?: No Airway Exam Known Difficult Airway: No Mallampati Class: 1 Mouth Opening: Normal (> 3cm) Thyromental Distance: Greater than 3 cm Neck Range of Motion: Full ROM Neck Circumference: Normal Teeth Condition: Normal Dentition ASA Classification ASA Score: ASA 2 Emergency Case?: No NPO Status NPO Status: NPO Clears >2 hours, Solids >8 hours Anesthesia Plan Resuscitation Status: Full Code Anesthesia Technique: General Anesthesia Airway Planned: Natural Airway Monitors Used: Standard Monitors
[2022-12-18 09:18] VITALS: BMI 19.9
[2022-12-18] MEDS: ceFAZolin 2 GM/50 ML BAG IVPB (09:53)
[2022-12-18] MEDS: Bupivacaine 0.25% Pres-Free 30 ML VIAL (10:09)
[2022-12-18] MEDS: Bupivacaine LIPOSOME/PF 133 MG/10 ML VIAL IJ (10:29)
[2022-12-18 10:45] VITALS: BP 135/95; PULSE 67; RESP 16; TEMP 36.3; O2SAT 99
[2022-12-18 11:14] VITALS: BP 145/95; PULSE 57; RESP 17; TEMP 36.6; O2SAT 98
--- NOTE | 2022-12-18 11:20 | W.ANESPOSTOP ---
Postoperative Evaluation Date, Time and Location Date Performed: 12/18/22 Time Performed: 11:11 Patient Location: Day Surgery Unit Vital Signs Most Recent Imported Vital Signs: Most Recent Vital Signs Temp Pulse Resp BP Pulse Ox 36.3 C L 67 16 135/95 H 99 12/18/22 10:45 12/18/22 10:45 12/18/22 10:45 12/18/22 10:45 12/18/22 10:45 Pain Score Most Recent Pain Score: Most Recent Pain Score Pain Level 0 12/18/22 10:45 Assessment Mental Status: Awake (Alert & Oriented to Patient Baseline) Airway and Respiratory Function: Patent airway with normal (patient baseline) respiratory exam Cardiovascular Function: Hemodynamically Stable Hydration Status: Adequately Hydrated Nausea & Vomiting: No Nausea or Vomiting Pain: Pain is tolerable per patient Peripheral Nerve Block: Patient did not receive a nerve block
[2022-12-18] MEDS: oxyCODONE 5 MG TAB PO (11:26)
[2022-12-18 11:55] VITALS: BP 118/67; PULSE 61; RESP 16; TEMP 36.8; O2SAT 95
== END 2022-12-18 12:35 | disposition home or self-care (01) ==
PROVIDERS: PCP Nurse Practitioner Family; Visit Provider Surgery
PROC: (CPT 49591; principal; 2022-12-18 10:00)
DX: K43.2 Incisional hernia without obstruction or gangrene (principal); F17.210 Nicotine dependence, cigarettes, uncomplicated; F41.8 Other specified anxiety disorders
CPT/HCPCS: 49591; C1781; J0690; J1100; J1885; J2405

== ENCOUNTER 2023-11-26 17:44 | Outpatient (REF) | payer OTHER, SELFPAY ==
[2023-11-28 09:18] LABS: HIV-1/2 Ag & Ab Screen Negative (Negative)
[2023-11-29 10:57] LABS: Hepatitis C Ab w Rflx HCV PCR Negative (Negative)
== END 2023-11-26 17:45 | disposition home or self-care (01) ==
LOC: LBN 17:44
PROVIDERS: PCP Nurse Practitioner Family; Visit Provider Nurse Practitioner Family
DX: Z11.4 Encounter for screening for human immunodeficiency virus [HIV] (principal); Z11.59 Encounter for screening for other viral diseases
CPT/HCPCS: 86803; 87389

== ENCOUNTER 2023-12-08 22:53 | Outpatient (REF) | payer OTHER, SELFPAY ==
[2023-12-08 21:38] LABS: Abs Immature Grans 0.03 10^3/uL (0.0-0.06); Absolute Basophil Count 0.05 10^3/uL (0.0-0.2); Absolute Eosinophil Count 0.09 10^3/uL (0.0-0.7); Absolute Lymphocyte Count 1.44 10^3/uL (1.2-3.4); Absolute Monocyte Count 0.27 10^3/uL (0.1-0.8); Absolute Neutrophil Count 4.81 10^3/uL (1.2-6.7); Basophils % 0.7 %; Eosinophils % 1.3 %; HGB 13.1 g/dL (11.2-15.7); Immature Grans % 0.4 %; Lymphocytes % 21.5 %; MCH 31.5 pg (27.0-33.0); MCHC 33.6 % (32.0-36.0); MCV 94 fL (80-95); MPV 9.8 fL (8.0-11.0); Neutrophils % 72.1 %; Platelet Count 339 10^3/uL (130-400); RBC 4.16 10^6/uL (3.93-5.22); RDW 11.7 % (11.7-14.6); RDW-SD 39.5 fL; WBC 6.69 10^3/uL (4.4-10.8)
[2023-12-08 22:32] LABS: ALT 48 U/L (14-59); AST 21 U/L (15-37); Albumin 3.7 g/dL (3.4-5.0); Alkaline Phosphatase 123 U/L (46-116); BUN 13 mg/dL (7-18); Bilirubin, Total 0.24 mg/dL (0.2-1.0); CREATININE 0.8 mg/dL (0.55-1.02); Calcium 9.4 mg/dL (8.5-10.1); Chloride 105 mmol/L (98-107); Estimated GFR 85.89 (mL/min/1.73m2); Glucose 91 mg/dL (74-106); Potassium 3.7 mmol/L (3.5-5.1); Sodium 143 mmol/L (136-145); Total Protein 6.6 g/dL (6.4-8.2)
[2023-12-10 11:42] LABS: Lyme Ab w Rflx to Lyme Confirm Negative (Negative)
[2023-12-12 23:51] LABS: Anaplasma phagocytophilum Negative (Negative); B. miyamotoi PCR Negative (Negative); Babesia divergens/MO-1 Negative (Negative); Babesia duncani Negative (Negative); Babesia microti Negative (Negative); Ehrlichia chaffeensis Negative (Negative); Ehrlichia ewingii/canis Negative (Negative); Ehrlichia muris eauclairensis Negative (Negative)
== END 2023-12-08 22:54 | disposition home or self-care (01) ==
LOC: LBN 22:53
PROVIDERS: PCP Nurse Practitioner Family; Visit Provider Physician Assistant
DX: R59.1 Generalized enlarged lymph nodes (principal)
CPT/HCPCS: 80053; 87798; 85025; 86618

== ENCOUNTER 2023-12-22 01:55 | Outpatient (CLI) | payer OTHER, SELFPAY ==
--- NOTE | 2023-12-22 06:45 | DI.MAMMO_ITS ---
Exam(s) MAMMO SCREENING EXAM: MAMMO SCREENING CLINICAL HISTORY: screening,Z12.39. TECHNIQUE: Bilateral full field digital CC and MLO mammographic images were obtained with 3D tomosyn thesis and utilizing computer aided detection (CAD). COMPARISON: Prior mammograms were reviewed. FINDINGS: The fibroglandular tissue pattern is again noted be moderately dense. A small benign-appearing nodule in posterior aspect of the medial right breast is unchanged from prio r mammograms and therefore benign. There are no new spiculated masses nor malignant appearing microcalcification groups. Few benign microcalcifications are noted posteriorly in the right breast. There is no significant architectural distortion nor skin thickening-retraction. IMPRESSION: Benign findings. No radiographic evidence of malignancy. BI-RADS Category 2 - Benign Findings Breast Density - Category C - Heterogeneously dense Breast density Category C or D implies that the patient has dense breast tissue. Dense breast tissue can make it harder to find cancer on a mammogram. Dense breast tissue is also associated with an incr eased risk of breast cancer. This information about the result of the mammogram report was provided to the patient to raise their awareness. Use this report when you speak with the patient about their risks for breast cancer, which includes their family history. At that time, you may recommend additional screening tests (Ultrasoun d or MRI) as these tests may add significant information. A negative radiographic report should not delay biopsy if a dominant or clinically suspicious mass is present. Up to ten percent of cancers are not identified on mammography. A negative report may reinforce clinical impression. Adenosis and dense breasts may obscure an underlying neoplasm. False positive reports average 6 to 10%. Patient will receive a letter notifying them of these results.
--- NOTE | 2023-12-22 08:48 | DI.CTLCSR_ITS ---
Exam(s) CT CHEST LUNG CANCER SCREEN EXAM: CT CHEST LUNG CANCER SCREEN CLINICAL HISTORY: Screening for lung cancer,CURRENT SMOKER,F17.200. TECHNIQUE: Imaging Protocol: Low Dose Technique CONTRAST MATERIAL: None COMPARISON: CR,XR XR CHEST 2V PA LATERAL from 10/10/2022 FINDINGS: CHEST: LUNGS: There are no ominous pulmonary nodules. There are no confluent infiltrates. No pleural effusi ons. MEDIASTINUM: There is no obvious hilar nor mediastinal adenopathy. CARDIAC: Heart size is normal. There is no pericardial effusion.Caliber of the thoracic aorta is wit hin normal limits. OTHER: Gallbladder surgically absent. OSSEOUS: No significant osseous lesions.No fractures.. IMPRESSION: 1. No significant pulmonary nodules. No infiltrates. No pleural effusions. 2. No intrathoracic adenopathy. 3. Lung RADS Cat 1 - Negative: No nodules and definitely benign nodules Lung-RADS 1.0 CATEGORIES: Category 0 - Prior chest CT exam(s) being located for comparison. Category 1 - Annual screening in 12 months. No nodules or definitely benign nodules. Category 2 - Annual screening in 12 months. Benign appearance. Nodules with low likelihood of becomin g active cancer. Category 3 - 6-month follow-up. Probably benign. Short-term follow-up suggested. Nodules with low lik elihood of becoming active cancer. Category 4A - 3-month follow-up and CT/PET if >8 mm in size. Suspicious finding. Findings which requi re additional testing. Category 4B - Findings which require additional testing and tissue sampling. Category 4X - Category 3 or 4 nodules with additional features or imaging findings that increases the suspicion of malignancy. Modifier S- Potentially clinically significant findings (non lung cancer) RADIATION DOSE DELIVERED: 16.63mGy.cm Total DLP DATA REPOSITORY: All CT scans at this facility are submitted to the National Radiology Data Registry (NRDR) Dose Index Registry (DIR) with the [employer] (ACR). RADIATION OPTIMIZATION: All CT scans at this facility use at least one of these dose optimization te chniques: automated exposure control; mA and/or kV adjustment per patient size (includes targeted exa ms where dose is matched to clinical indication); or iterative reconstruction.
== END 2023-12-22 02:15 ==
LOC: DI 01:55
PROVIDERS: PCP Nurse Practitioner Family; Visit Provider Nurse Practitioner Family
DX: Z12.31 Encounter for screening mammogram for malignant neoplasm of breast (principal); F17.210 Nicotine dependence, cigarettes, uncomplicated; Z12.2 Encounter for screening for malignant neoplasm of respiratory organs
CPT/HCPCS: 71271; 77063; 77067

== ENCOUNTER 2024-02-20 13:34 | Emergency (ER) | payer OTHER, SELFPAY ==
[2024-02-20 13:39] VITALS: BP 167/79; PULSE 95; RESP 15; TEMP 36.6; O2SAT 96
--- NOTE | 2024-02-20 14:15 | DI.RAD_ITS ---
Exam(s) XR CHEST 2V PA LATERAL EXAM: XR CHEST 2V PA LATERAL CLINICAL HISTORY: right lateral rib pain after fall. TECHNIQUE: 2D digital imaging was performed. COMPARISON: CR,XR XR CHEST 2V PA LATERAL from 10/10/2022 FINDINGS: 2 views: Heart size is normal. The mediastinum is not widened. Lungs are clear. No infiltrates nor pleural effusions. IMPRESSION: No acute pulmonary findings. DATA REPOSITORY: RADIATION DOSE DELIVERED:
--- NOTE | 2024-02-20 14:15 | DI.RAD_ITS ---
Exam(s) XR FOREARM LT EXAM: XR FOREARM LT CLINICAL HISTORY: foosh, distal rad/ulna pain/swelling. TECHNIQUE: 2D digital imaging was performed. COMPARISON: No exams were available for comparison FINDINGS: Two views There fractures of the distal radius and ulnar styloid, as detailed on the wrist report. There are n o fracture seen more proximally in the forearm bones. No elbow joint effusion. No swelling of the o lecranon bursa. No radiopaque foreign densities. No soft tissue gas IMPRESSION: Fractures distal radius and ulna. No fractures more proximally in these bones nor at the elbow. DATA REPOSITORY: RADIATION DOSE DELIVERED:
--- NOTE | 2024-02-20 14:15 | DI.RAD_ITS ---
Exam(s) XR WRIST LT COMPLETE EXAM: XR WRIST LT COMPLETE CLINICAL HISTORY: foosh, distal rad/ulna pain/swelling. TECHNIQUE: 2D digital imaging was performed. COMPARISON: No exams were available for comparison FINDINGS: 3 views There is a fracture of the distal radius with dorsal angulation and mild impaction. There is also a fracture of the base of the ulnar styloid. There is positive ulnar variance evident. No carpal disl ocation. No scaphoid fracture and scapholunate distance is normal IMPRESSION: Distal radius fracture with impaction and dorsal angulation. Fracture of the base of the ulnar styloid, nondisplaced. Positive ulnar variance DATA REPOSITORY: RADIATION DOSE DELIVERED:
[2024-02-20] MEDS: HYDROcodone 10/Acetaminophen 325 TAB PO (14:42)
[2024-02-20] MEDS: Ketorolac 30 MG/ML VIAL IM (14:44)
[2024-02-20] MEDS: Lidocaine 5% Patch 2 PATCH TP (14:44)
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
[2024-02-20] MEDS: Bupivacaine 0.5% Pres-Free 30 ML VIAL (15:27)
--- NOTE | 2024-02-20 16:14 | DI.VRAD_ITS ---
PROCEDURE INFORMATION: Exam: XR Left Forearm Exam date and time: 02/20/2024 2:57 PM Age: 58 years old Clinical indication: Injury or trauma; Fall; Fracture, traumatic injury; Closed fracture; Wrist; Left TECHNIQUE: Imaging protocol: Radiologic exam of the left forearm. Views: 2 views. COMPARISON: CR LEFT THUMB 05/03/2017 12:54 PM FINDINGS: Bones/joints: There is a slightly impacted posteriorly displaced minimally comminuted distal radial metaphyseal fracture. Positioning limits assessment of the ulnar styloid which is likely fractured. Soft tissues: Normal. IMPRESSION: Distal radial and probable distal ulnar fractures. Impaction and posterior displacement noted. Dictated and Authenticated by: Ludmila Leon MD. Ordering:CHIP Voss MD
--- NOTE | 2024-02-20 16:15 | DI.VRAD_ITS ---
PROCEDURE INFORMATION: Exam: XR Left Wrist Exam date and time: 02/20/2024 2:58 PM Age: 58 years old Clinical indication: Injury or trauma; Fall; Fracture, traumatic injury; Closed fracture; Wrist; Left TECHNIQUE: Imaging protocol: Radiologic exam of the left wrist. Views: 3 or more views. COMPARISON: CR XR FOREARM LT 02/20/2024 2:57 PM FINDINGS: Bones/joints: There are distal radial and ulnar fractures. There is posterior offset of the distal radius with impaction and probable mild comminution. There is no definite involvement of the articular surface. Soft tissues: Normal. IMPRESSION: Distal radial and ulnar fractures with impaction and posterior displacement. Dictated and Authenticated by: Ludmila Leon MD. Ordering:CHIP Voss MD
--- NOTE | 2024-02-20 16:16 | DI.VRAD_ITS ---
PROCEDURE INFORMATION: Exam: XR Chest Exam date and time: 02/20/2024 2:55 PM Age: 58 years old Clinical indication: Injury or trauma; Blunt trauma (contusions or hematomas); Injury details: Right lateral rib pain after fall TECHNIQUE: Imaging protocol: Radiologic exam of the chest. Views: 2 views. COMPARISON: CT CHEST LUNG CANCER SCREEN 12/22/2023 8:40 AM FINDINGS: Lungs: Unremarkable. No consolidation. Pleural spaces: Unremarkable. No pleural effusion. No pneumothorax. Heart/Mediastinum: Unremarkable. No cardiomegaly. Bones/joints: Unremarkable. IMPRESSION: No evidence for acute abnormality. Dictated and Authenticated by: Ludmila Leon MD. Ordering:CHIP Voss MD
[2024-02-20 16:21] VITALS: BP 163/99; PULSE 76; RESP 20; O2SAT 98
[2024-02-20] MEDS: Propofol 200 MG/20 ML VIAL 100 MG IVP (16:22)
--- NOTE | 2024-02-20 16:30 | DI.RAD_ITS ---
Exam(s) XR WRIST LT LIMITED EXAM: XR WRIST LT LIMITED CLINICAL HISTORY: post reduction. TECHNIQUE: 2D digital imaging was performed. COMPARISON: No exams were available for comparison FINDINGS: Two post closed reduction in cast views There is improved alignment the distal radial fracture site following reduction Ulnar styloid base fracture again noted, nondisplaced. IMPRESSION: Improved alignment post reduction DATA REPOSITORY: RADIATION DOSE DELIVERED:
--- NOTE | 2024-02-20 16:35 | W.EDPROG ---
Date of service: 02/20/24 Time of Service: 16:35 Medical Decision Making Assisted with procedural sedation and this 58-year-old with left distal radius fracture. Quality:SDOH Health Related Social Needs: Health related social needs inadequate housing(Z59.1) Health related social needs details N/A Procedures Procedural Sedation Indication: fracture/dislocation reduction ASA Class: I Time of Last PO Intake: 12:00 Preparation: technology education teacher applied, pulse oximeter, capnometry used, supplemental O2 applied, suction/airway equipment at bedside and IV secured IV Propofol dose (mg): 40 Patient Tolerated Procedure: well Complications: none Additional Comments: Sedation just in the room between 4:15 PM and 4:25 PM Discharge Plan Discharge Details Chief Complaint: Orthopedic Primary Care Provider: Greg Encarnacion ED Provider: Bipin Pete Home Meds and New Rx's Prescriptions: No Action acetaminophen [Tylenol Extra Strength] 500 mg tablet 1,000 mg PO Q6H PRN ibuprofen 200 mg tablet 600 mg PO Q6H PRN calcium carbonate [Tums] 200 mg calcium (500 mg) Tablet,Chewable 500 mg PO DIRECTED
--- NOTE | 2024-02-20 16:37 | RESPIRATORY ---
Respiratory Therapy on emergency stand by for conscious sedation. ETC02, Ambu, suction, nasal airway at bedside. Procedure tolerated well.
[2024-02-20 16:40] VITALS: BP 131/72; PULSE 63; RESP 14; O2SAT 97
[2024-02-20 16:46] VITALS: BP 147/75; PULSE 74; RESP 18; O2SAT 96
--- NOTE | 2024-02-20 16:54 | DI.VRAD_ITS ---
PROCEDURE INFORMATION: Exam: XR Left Wrist Exam date and time: 02/20/2024 4:45 PM Age: 58 years old Clinical indication: Other: Post reduction TECHNIQUE: Imaging protocol: Radiologic exam of the left wrist. Views: 3 or more views. COMPARISON: CR XR WRIST LT COMPLETE 02/20/2024 2:58 PM FINDINGS: Bones/joints: Alignment is improved following reduction with external cast. Distal radial and ulnar fractures noted. Soft tissues: Normal. IMPRESSION: Improved alignment post reduction. Dictated and Authenticated by: Ludmila Leon MD. Ordering:CHIP Voss MD
[2024-02-20 17:35] VITALS: PULSE 65; RESP 18; TEMP 36.8; O2SAT 98
[2024-02-20] MEDS: MORPHine IR 15 MG TAB, 4 TABS/BTL PO (17:49)
== END 2024-02-20 17:50 | disposition home or self-care (01) ==
PROVIDERS: Emergency Provider Student in an Organized Health Care Education/Training Program; PCP Nurse Practitioner Family
DX: S52.502A Unspecified fracture of the lower end of left radius, initial encounter for closed fracture (principal); S52.602A Unspecified fracture of lower end of left ulna, initial encounter for closed fracture; W19.XXXA Unspecified fall, initial encounter
CPT/HCPCS: 00123; 96372; 99152; 99284; 25605; 71046; 73090; 73100; 73110; J0665; J1885; J2704; J3490

== ENCOUNTER 2024-02-22 15:17 | Outpatient (CLI) | payer OTHER, SELFPAY ==
--- NOTE | 2024-02-22 13:30 | DI.RAD_ITS ---
Exam(s) XR WRIST LT LIMITED EXAM: XR WRIST LT LIMITED CLINICAL HISTORY: Fx. TECHNIQUE: 2D digital imaging was performed. COMPARISON: CR,XR XR WRIST LT LIMITED from 02/20/2024 CR,XR XR WRIST LT COMPLETE from 02/20/2024 FINDINGS: Two views The fiberglass cast has been removed. Again noted is a previously described fracture of the distal radius and ulnar styloid. Some impactio n again noted with slightly less dorsal angulation at this time. However, the amount of dorsal angul ation is slightly increased when compared to post reduction in cast views of 02/20/2024. Also slight ly increased positive ulnar variance. IMPRESSION: As above. DATA REPOSITORY: RADIATION DOSE DELIVERED:
== END 2024-02-22 15:18 | disposition home or self-care (01) ==
LOC: DIORS 15:18
PROVIDERS: PCP Nurse Practitioner Family; Visit Provider Student in an Organized Health Care Education/Training Program
DX: S52.512D Displaced fracture of left radial styloid process, subsequent encounter for closed fracture with routine healing (principal); X58.XXXD Exposure to other specified factors, subsequent encounter
CPT/HCPCS: 73100

== ENCOUNTER 2024-02-24 08:24 | Day surgery (SDC) | payer OTHER, SELFPAY ==
--- NOTE | 2024-02-24 07:21 | W.PM.DSUDISC ---
Date of service: 02/24/24 Time of Service: 13:00 Discharge Plan Disposition Patient Disposition: Home Condition: Stable Discharge Details Attending Provider: Declan Quinones Primary Care Provider: Greg Encarnacion Home Meds and New Rx's Prescriptions: New naproxen 250 mg tablet 250 mg PO BID PRN (Reason: Moderate pain) Qty: 20 0RF oxycodone 5 mg tablet 5 - 10 mg PO Q4H PRN (Reason: Moderate to severe pain) Qty: 7 0RF Continued acetaminophen [Tylenol Extra Strength] 500 mg tablet 1,000 mg PO Q6H PRN ibuprofen 200 mg tablet 600 mg PO Q6H PRN calcium carbonate [Tums] 200 mg calcium (500 mg) Tablet,Chewable 500 mg PO DIRECTED Discharge Instructions Additional Instructions: Surgery: Left distal radius closed reduction with manipulation and splinting under anesthesia Activity: Nonweightbearing left wrist. May use hand gently. May use sling for support when out of the home. Otherwise, elevate and rest on pillows. Encourage increasing range of motion fingers and thumb to read stiffness. Prescriptions: Naproxen 250 mg take 1 every 12 hours with a meal as needed for moderate pain (do not use at same time as ibuprofen) Oxycodone 5 mg take 1 every 4-6 hours as needed for severe pain You may use [id number] Tylenol (acetaminophen) as needed for mild pain. These pain medications may be taken all at once or in different combinations as needed. Also, recommend Colace (docusate) as a stool softener as surgery and pain medicine cause constipation. You may try [id number] diphenhydramine (Benadryl) 25-50 mg nightly as a sleep aid Dressings: Leave splint and dressing in place until follow-up. Keep clean and dry at all times. Follow-up: 10-[address] Quinones You may take off the leg compression stockings this evening at home. You may also leave them on a few days longer if you have a history of leg swelling or edema. Let us know right away if you develop any redness, drainage, fevers, chest pain, or trouble breathing. Do not drink alcohol or drive for at least 24 hours after anesthesia. Please call the office during business hours with any questions or concerns. Stand Alone Forms: Anesthesia Discharge Inst., Anes.Nerve Block Instructions, Press Ganey ([facility]U) Referrals: Declan Quinones MD [ [facility] STAFF PHYSICIAN] - 03/08/24 2:00 pm Discharge Orders Discharge Orders: Discharge Order (Routine); Ordered 02/24/24 Ordered By: Kevyn Lee DS: Diagnosis Discharge Diagnosis (1) Distal radius fracture, left: Status: Acute
[2024-02-24 09:02] VITALS: BP 162/78; PULSE 86; RESP 16; TEMP 37.6; O2SAT 99
[2024-02-24] MEDS: Lactated Ringers 1,000 ML 30 ML IV (10:01)
--- NOTE | 2024-02-24 10:30 | DI.RAD_ITS ---
Exam(s) XR WRIST LT LIMITED EXAM: XR WRIST LT LIMITED CLINICAL HISTORY: LEFT DISTAL RADIUS FRACTURE. TECHNIQUE: 2D and realtime digital imaging was performed. COMPARISON: CR XR WRIST LT LIMITED from 02/22/2024 FINDINGS: Hard copy images show improvement in the alignment of the previously noted distal radial fracture. U lnar styloid fracture is unchanged. Please see procedure note for details. Fluoro time: 16.4seconds RADIATION DOSE DELIVERED: lavinia Kapoor=0.22 mGy
[2024-02-24 10:32] VITALS: BP 142/75; PULSE 70; RESP 14; TEMP 36.5; O2SAT 96
--- NOTE | 2024-02-24 11:51 | W.ANESNERVE ---
Nerve Block Single Injection Procedure Date and Time Date Performed: 02/24/24 Procedure Start: 10:37 Location Where Procedure Performed Procedure Location: Day Surgery Unit Reason Performed: Postoperative Analgesia Requesting Provider: Declan Quinones Timeout Performed Timeout Performed: No Monitoring Used ECG, Blood Pressure, SpO2 and See EMR for corresponding vital signs Sterility Sterility: Hand Hygiene, Surgical Cap, Surgical Mask, Sterile Gloves, Sterile Drape/Sheet, Eye Protection and Chlorhexidine Sedation Given During Procedure Sedation Given (Indicate Dose Given): No Sedation given, Directed by Requesting Provider and Versed IV Dose:: 2mg Patient Mental Status Patient Mental Status: Sedate with meaningful communication Nerve Block 1st Nerve Block: Laterality: Left Block Type: Axillary Ultrasound Image Saved?: Yes Needle / Catheter Used: 100mm SonoPlex II Local Anesthetic Bolus (Indicate Dose Given): Lidocaine used for local infiltration of skin, Injected in 3-5ml increments after negative blood aspiration, Bupivacaine 0.375% Dose:: 12ml and Exparel Dose:: 9ml Additives (Indicate Dose Given): None Ultrasound: Sterile probe cover and gel used Nerve Stimulator: Supplement to Ultrasound use and No twitch or parasthesia noted < 0.5 mA Paresthesia: None Procedure Tolerated: No Complications and Patient tolerated well Procedure Outcome: Successful Performed By: Kaleb Cruz Supervised By: Eliel Gomez
--- NOTE | 2024-02-24 12:00 | W.PM.OP ---
Date of service: 02/24/24 Time of Service: 12:30 Operative Note Operative Note DATE OF PROCEDURE: 02/24/24 POST-OP DIAGNOSIS: same Displaced extra-articular left distal radius fracture PROCEDURE: Left distal radius closed reduction with manipulation and splinting under anesthesia, CPT #87767 SURGEON: Declan Quinones CREASING MACHINE OPERATOR: Kevyn Lee ANESTHESIA TYPE: General LMA/ETT and Primary Nerve Block Refer to Anesthesia Record ESTIMATED BLOOD LOSS: 0 COMPLICATIONS: None Patient was transported to: PACU Patient's condition: stable Indications: Please see complete medical record for details. Findings: Readily reducible extra-articular distal radius fracture Procedure Description: In the operating room, general anesthesia was induced. The patient was positioned supine on the operating room table. All bony prominences were well-padded. Preoperative antibiotics were held. The correct patient, procedure, and side of the procedure were all verified prior to beginning. The left wrist was examined, there was moderate generalized edema, and some ulnar broad ecchymosis. Compartments were soft. Radial pulse was readily palpable. There was obvious dorsal bony prominence step-off deformity at the fracture site. The single panel raiser operator maneuver was then used with gentle traction, distraction, then volar directed force readily restoring height and tilt as well as the volar hook. A sugar-tong plaster splint was then made and applied to the extremity and molded to maintain reduction with the volar directed force and some ulnar deviation. Final C arm images confirmed appropriate reduction with excellent alignment in the splint. The patient awoke from anesthesia without complication and was transferred to the recovery room in a stable condition.
[2024-02-24 12:38] VITALS: BP 111/61; PULSE 85; RESP 16; TEMP 36.3; O2SAT 100
--- NOTE | 2024-02-24 12:48 | W.ANESPRE ---
General Info Date of Service Date Performed: 02/24/24 Height: 4 ft 11 in Weight: 38.4 kg Body Mass Index (BMI): 17.1 Surgical Procedure: Operation Date: 02/24/24 11:40 Proposed Procedure Side Surgeon p Closed Reduction VS Wrist ORIF Distal Radius Left Declan Quinones MD Actual Procedure Side Surgeon p Closed Reduction LEFT DISTAL RADIUS Left Declan Quinones MD Pre-Op Diagnosis Post-Op Diagnosis LEFT DISTAL RADIUS FRACTURE LEFT DISTAL RADIUS FRACTURE Meds Allergies and Home Medications Allergies Allergy/AdvReac Type Severity Reaction Status Date / Time No Known Allergies Allergy Verified 02/24/24 09:24 Home Medication ?Medication ?Instructions ?Recorded calcium carbonate (Tums) 500 mg PO DIRECTED 11/25/22 acetaminophen 500 mg tablet 1,000 mg PO Q6H PRN 12/30/22 (Tylenol Extra Strength) ibuprofen 200 mg tablet 600 mg PO Q6H PRN 12/30/22 Current Visit Medications: Current Medications Generic Name Dose Route Start Last Admin Trade Name Freq PRN Reason Stop Dose Admin Acetaminophen 1,000 mg 02/24/24 07:17 Acetaminophen 500 Mg Tab PO 03/25/24 07:16 Q6H PRN PRN Ringer's Solution 1,000 mls @ 30 mls/hr 02/24/24 06:00 02/24/24 12:42 IV 03/24/24 23:59 30 mls/hr INFUSION ELENA Infusion IV Miscellaneous Supplies 1 each 02/24/24 06:00 Iv Access IV 03/24/24 23:59 DIRECTED ELENA Naproxen 250 - 500 mg 02/24/24 07:17 Naproxen 250 Mg Tab PO 03/25/24 07:16 NOW PRN pain Sodium Chloride 0 ml 02/24/24 06:00 Normal Saline Flush 10 Ml Syr IV 03/24/24 23:59 PRN PRN Sodium Chloride 0 ml 02/24/24 06:00 Normal Saline 10 Ml Vial IJ 03/24/24 23:59 DIRECTED PRN Sterile Water 0 ml 02/24/24 06:00 Water,Injection,Sterile 10 Ml Vial IJ 03/24/24 23:59 DIRECTED PRN PFSH Active Problems Active Problems: Problem Status Onset Code Closed fracture of distal end of left ulna Acute S52.602A Distal radius fracture, left Acute 02/19/24 S52.502A Hyperlipidemia LDL goal <100 Chronic E78.5 Abnormal mammogram of left breast Acute R92.8 Anxiety and depression Chronic F41.9, F32.9 History of abnormal cervical Pap smear Acute 03/25/04 Z87.898 Abnormal weight loss Acute R63.4 Carpal tunnel syndrome Acute G56.00 Depressive disorder Acute F32.9 H/O section Acute Z98.891 Headache Acute R51 Hx of BSO (bilateral salpingo-oophorectomy) Acute Z90.79, Z90.722 S/P cholecystectomy Acute Z90.49 Smoker Acute F17.200 Medical History Medical History Gastritis Pain in left hip Encounter for screening for other viral diseases Bitten by dog, subsequent encounter (05/03/17) Synovitis and tenosynovitis (10/18/12) Medical History Comments:: 02/24/24: Has smoked 2 cigarette's prior to [facility] admit Surgical History Surgical History Incisional hernia (~11/2022) section Cholecystectomy Bilateral salpingectomy with oophorectomy Tobacco Smoking/Tobacco Use Status: Current every day Tobacco Type: cigarettes Second hand exposure: Yes Counseling given: provider counseling Alcohol Alcohol Intake: current Alcohol intake frequency: a few times a month Alcohol type: beer Details: 6 or more drinks monthly or less Substance Use Substance use: Rarely Substance use type: marijuana Vital Signs and Lab Results Vital Signs Most Recent Vital Signs in EMR: Most Recent Vital Signs Temp Pulse Resp BP Pulse Ox 36.5 C 70 14 142/75 H 96 02/24/24 10:32 02/24/24 10:32 02/24/24 10:32 02/24/24 10:32 02/24/24 10:32 Lab Results Blood Type / Crossmatch: No Data to Display Complete Blood Count: No Data to Display Complete Metabolic Panel: No Data to Display Liver Function Panel: No Data to Display Coagulation Panel: No Data to Display Cardiac Panel: No Data to Display Arterial Blood Gas: No Data to Display Venous Blood Gas: No Data to Display Pancreas Panel: No Data to Display Thyroid Panel: No Data to Display Infectious Disease: No Data to Display Blood Cultures: No Data to Display Toxicology Panel: No Data to Display Anesthesia Assessment and Plan Anesthesia History Personal History: No History of Anesthesia Complications Family History: No Family History of Anesthesia Complications Exercise Tolerance Exercise Tolerance: Metabolic Equivalents>4 Pertinent Negatives Pertinent Negatives: No Symptoms of GERD, No Major Cardiovascular Symptoms or Complaints, No Major Pulmonary Symptoms or Complaints and No History of CVA/TIA Cardiac & Pulmonary Exam Cardiac Exam: Normal S1/S2 Heart Sounds Pulmonary Exam: Clear Bilateral Breath Sounds Implantable Cardiac Device Does patient have a Pacemaker or an ICD?: No Airway Exam Known Difficult Airway: No Mallampati Class: 1 Mouth Opening: Normal (> 3cm) Thyromental Distance: Greater than 3 cm Neck Range of Motion: Full ROM Neck Circumference: Normal Teeth Condition: Normal Dentition ASA Classification ASA Score: ASA 2 Emergency Case?: No NPO Status NPO Status: NPO Clears >2 hours, Solids >8 hours Anesthesia Plan Resuscitation Status: Full Code Anesthesia Technique: General Anesthesia Airway Planned: Natural Airway Pain Management: Surgeon and patient request nerve block Monitors Used: Standard Monitors
[2024-02-24 12:49] VITALS: BMI 17.1
--- NOTE | 2024-02-24 12:50 | W.ANESPOSTOP ---
Postoperative Evaluation Date, Time and Location Date Performed: 02/24/24 Time Performed: 12:50 Patient Location: Day Surgery Unit Vital Signs Most Recent Imported Vital Signs: Most Recent Vital Signs Temp Pulse Resp BP Pulse Ox 36.5 C 70 14 142/75 H 96 02/24/24 10:32 02/24/24 10:32 02/24/24 10:32 02/24/24 10:32 02/24/24 10:32 Pain Score Most Recent Pain Score: Most Recent Pain Score Pain Level 0 02/24/24 10:32 Assessment Mental Status: Awake (Alert & Oriented to Patient Baseline) Airway and Respiratory Function: Patent airway with normal (patient baseline) respiratory exam Cardiovascular Function: Hemodynamically Stable Hydration Status: Adequately Hydrated Nausea & Vomiting: No Nausea or Vomiting Pain: Pt. Denies Any Pain Peripheral Nerve Block: Regional nerve block not resolved at time of post operative discharge
[2024-02-24 13:20] VITALS: BP 165/65; PULSE 77; RESP 16; TEMP 36.3; O2SAT 97
== END 2024-02-24 14:02 | disposition home or self-care (01) ==
LOC: SUR 08:25
PROVIDERS: PCP Nurse Practitioner Family; Visit Provider Student in an Organized Health Care Education/Training Program
PROC: (CPT 25605; principal; 2024-02-24 11:30)
DX: S52.502A Unspecified fracture of the lower end of left radius, initial encounter for closed fracture (principal); W19.XXXA Unspecified fall, initial encounter; G89.18 Other acute postprocedural pain
CPT/HCPCS: 25605; 64417; 76000; 76942; 73100; J2405; J2704

== ENCOUNTER 2024-03-08 14:52 | Outpatient (CLI) | payer OTHER, SELFPAY ==
--- NOTE | 2024-03-08 14:00 | DI.RAD_ITS ---
Exam(s) XR WRIST LT LIMITED EXAM: XR WRIST LT LIMITED INDICATION: F/U FRACTURE. COMPARISON: CR XR WRIST LT LIMITED from 02/22/2024 XA XR WRIST LT LIMITED from 02/24/2024 TECHNIQUE: 2D digital imaging was performed. Two views. FINDINGS: The bony detail is obscured by cast material. No change in alignment of distal radial and ulnar styl oid fractures. DATA REPOSITORY: RADIATION DOSE DELIVERED:
== END 2024-03-08 14:53 | disposition home or self-care (01) ==
LOC: DIORS 14:52
PROVIDERS: PCP Nurse Practitioner Family; Visit Provider Student in an Organized Health Care Education/Training Program
DX: S52.512D Displaced fracture of left radial styloid process, subsequent encounter for closed fracture with routine healing (principal); S52.612D Displaced fracture of left ulna styloid process, subsequent encounter for closed fracture with routine healing; X58.XXXD Exposure to other specified factors, subsequent encounter
CPT/HCPCS: 73100

== ENCOUNTER 2024-03-15 15:18 | Outpatient (CLI) | payer OTHER, SELFPAY ==
--- NOTE | 2024-03-15 13:45 | DI.RAD_ITS ---
Exam(s) XR WRIST LT LIMITED EXAM: XR WRIST LT LIMITED INDICATION: F/U FRACTURE. COMPARISON: No exams were available for comparison TECHNIQUE: 2D digital imaging was performed. Two views. FINDINGS: A cast is in place which partially obscures the bony detail. There has been no change in the alignme nt of the distal radial and ulnar styloid fractures. DATA REPOSITORY: RADIATION DOSE DELIVERED:
== END 2024-03-15 15:19 | disposition home or self-care (01) ==
LOC: DIORS 15:18
PROVIDERS: PCP Nurse Practitioner Family; Visit Provider Student in an Organized Health Care Education/Training Program
DX: S52.512D Displaced fracture of left radial styloid process, subsequent encounter for closed fracture with routine healing (principal); S52.612D Displaced fracture of left ulna styloid process, subsequent encounter for closed fracture with routine healing; X58.XXXD Exposure to other specified factors, subsequent encounter
CPT/HCPCS: 73100

== ENCOUNTER 2024-04-05 11:44 | Outpatient (CLI) | payer OTHER, SELFPAY ==
--- NOTE | 2024-04-05 10:45 | DI.RAD_ITS ---
Exam(s) XR WRIST LT LIMITED EXAM: XR WRIST LT LIMITED INDICATION: F/U FRACTURE. COMPARISON: CR XR WRIST LT LIMITED from 03/15/2024 TECHNIQUE: 2D digital imaging was performed. Two views. FINDINGS: The cast has been removed. There has been no change in the alignment of the distal radial and ulnar styloid fractures. DATA REPOSITORY: RADIATION DOSE DELIVERED:
== END 2024-04-05 11:45 | disposition home or self-care (01) ==
LOC: DIORS 11:44
PROVIDERS: PCP Nurse Practitioner Family; Visit Provider Student in an Organized Health Care Education/Training Program
DX: S52.512D Displaced fracture of left radial styloid process, subsequent encounter for closed fracture with routine healing (principal); X58.XXXD Exposure to other specified factors, subsequent encounter
CPT/HCPCS: 73100

== ENCOUNTER 2024-05-17 16:02 | Outpatient (CLI) | payer OTHER, SELFPAY ==
--- NOTE | 2024-05-17 11:00 | DI.RAD_ITS ---
Exam(s) XR WRIST LT LIMITED EXAM: XR WRIST LT LIMITED INDICATION: F/U FRACTURE. COMPARISON: CR XR WRIST LT LIMITED from 04/05/2024 TECHNIQUE: 2D digital imaging was performed. Two views. FINDINGS: There has been continued healing at the distal radial fracture which is unchanged in alignment. The ulnar styloid fractures unchanged. Some soft tissue swelling remains present. No new abnormalities. DATA REPOSITORY: RADIATION DOSE DELIVERED:
== END 2024-05-17 16:03 | disposition home or self-care (01) ==
LOC: DIORS 16:03
PROVIDERS: PCP Nurse Practitioner Family; Visit Provider Student in an Organized Health Care Education/Training Program
DX: S52.512D Displaced fracture of left radial styloid process, subsequent encounter for closed fracture with routine healing (principal); X58.XXXD Exposure to other specified factors, subsequent encounter
CPT/HCPCS: 73100

== ENCOUNTER 2024-07-12 15:55 | Outpatient (CLI) | payer OTHER, SELFPAY ==
--- NOTE | 2024-07-12 11:00 | DI.RAD_ITS ---
Exam(s) XR WRIST LT LIMITED EXAM: XR WRIST LT LIMITED CLINICAL HISTORY: F/U FRACTURE. TECHNIQUE: 2D digital imaging was performed of the left wrist. Two images were obtained. PA and la teral views were obtained. COMPARISON: CR XR WRIST LT LIMITED from 05/17/2024 FINDINGS: BONES: There is a nonunited old ulnar styloid process fracture fragment. There has been no change in alignment of the distal left radial fracture which shows continued healing. The bones are osteopeni c. No bony destructive lesion is seen. JOINTS: The carpal bones are normally aligned. SOFT TISSUE: Normal. IMPRESSION: Stable alignment of the left distal radial fracture. There has been continued interval healing since the prior examination. DATA REPOSITORY: RADIATION DOSE DELIVERED:
== END 2024-07-12 15:56 | disposition home or self-care (01) ==
LOC: DIORS 15:55
PROVIDERS: PCP Nurse Practitioner Family; Visit Provider Student in an Organized Health Care Education/Training Program
DX: S52.512D Displaced fracture of left radial styloid process, subsequent encounter for closed fracture with routine healing (principal); X58.XXXD Exposure to other specified factors, subsequent encounter
CPT/HCPCS: 73100